=== PATIENT | male | born 1960 | race Caucasian/White ===

== ENCOUNTER 2021-08-01 16:43 | Emergency (ER) | payer MEDICAID ==
--- NOTE | 2021-08-01 16:46 | ERPHSYRPT ---
- History of Present Illness Time Seen by Provider: 08/01/21 16:46 Source: patient Exam Limitations: no limitations Physician History: This is a 61-year-old white male who was seen by nurse practitioner Buffy today for the first time. He has not seen a doctor in 18 years. He is a mechanic welder truck driver and he was seeing her because of bilateral lower extremity leg pain and swelling. He is not on any medications chronically has no known drug allergies. Several labs were obtained earlier today which showed a normal GFR, slightly low potassium of 3.1 and a D-dimer of 1060. Patient was sent here for further evaluation. Patient has a cough. He denies chest pain. He does not have any shortness of breath. He has no abdominal pain. He has no nausea vomiting or diarrhea. Timing/Duration: today Severity: moderate Associated Symptoms: cough, No vomiting, No abdominal pain, No shortness of breath, No chest pain Allergies/Adverse Reactions: No Known Drug Allergies Allergy (Verified 08/01/21 17:04) Home Medications: No Reportable Medications [No Reported Medications] 08/01/21 [History] Travel Risk - International Travel Have you traveled outside of the country in past 3 weeks: No - Coronavirus Screening Are you exhibiting any of the following symptoms?: Yes Symptoms: Cough: New Onset Close contact with a COVID-19 positive Pt in past 14-21 Days: No - Review of Systems Constitutional: No Symptoms Eyes: No Symptoms Ears, Nose, & Throat: No Symptoms Respiratory: Cough Cardiac: No Symptoms Abdominal/Gastrointestinal: No Symptoms Genitourinary Symptoms: No Symptoms Musculoskeletal: Other Skin: No Symptoms (Swelling bilateral lower extremities) Neurological: No Symptoms Psychological: No Symptoms Endocrine: No Symptoms Hematologic/Lymphatic: No Symptoms Immunological/Allergic: No Symptoms All Other Systems: Reviewed and Negative - Past Medical History Pertinent Past Medical History: No - Past Surgical History Past Surgical History: No - Nursing Vital Signs Nursing Vital Signs: Initial Vital Signs Temperature 98.4 F 08/01/21 16:54 Pulse Rate 120 H 08/01/21 16:54 Respiratory Rate 20 08/01/21 16:54 Blood Pressure 136/91 08/01/21 16:54 O2 Sat by Pulse Oximetry 99 08/01/21 16:54 Pain Scale Pain Intensity 4 - Physical Exam General Appearance: no apparent distress, alert, anxiety Eye Exam: PERRL/EOMI, eyes nml inspection Ears, Nose, Throat Exam: normal ENT inspection, moist mucous membranes Neck Exam: normal inspection, non-tender, supple, full range of motion Respiratory Exam: normal breath sounds, lungs clear, airway intact, No chest tenderness, No respiratory distress Cardiovascular Exam: tachycardia Gastrointestinal/Abdomen Exam: soft, normal bowel sounds, No tenderness Rectal Exam: not done Back Exam: normal inspection, normal range of motion, No CVA tenderness, No vertebral tenderness Extremity Exam: normal range of motion, pelvis stable, pedal edema (Bilateral), tenderness (Bilateral lower extremity) Neurologic Exam: alert, oriented x 3, cooperative, 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, normal mood/affect, nml cerebellar function, nml station & gait, sensation nml Skin Exam: normal color, warm, dry Lymphatic Exam: No adenopathy SpO2 Interpretation: normal O2 Delivery: Room Air - Course Nursing assessment & vital signs reviewed: Yes Ordered Tests: Active Orders 24 hr Category Date Time Status CHEST WITH CONTRAST [CT] Stat Exams 08/01/21 17:22 Taken VENOUS BILATERAL EXTREMITY [US] Stat Exams 08/01/21 17:20 Taken Medication Summary Discontinued Medications Generic Name Dose Route Start Last Admin Trade Name Freq PRN Reason Stop Dose Admin Sodium Chloride 500 mls @ 500 mls/hr 08/01/21 17:22 08/01/21 19:11 Sodium Chloride 0.9% 500 Ml IV 08/01/21 18:21 Infused .Q1H ONE Infusion Sodium Chloride Confirm 08/01/21 17:25 Sodium Chloride 0.9% 500 Ml Administered 08/01/21 17:26 Dose 500 mls @ ud IV .STK-MED ONE Potassium Chloride 20 meq 08/01/21 17:21 08/01/21 17:26 Potassium Chloride 10 Meq Tablet PO 08/01/21 17:22 20 meq STAT ONE Administration Potassium Chloride Confirm 08/01/21 17:25 Potassium Chloride 10 Meq Tablet Administered 08/01/21 17:26 Dose 20 meq PO .STK-MED ONE - Progress Progress: improved, pain not gone completely, re-examined Progress Note: 08/01/21 19:03 Bilateral lower extremity ultrasound is negative for DVT. 08/01/21 19:39 CTA of the chest shows no obvious pulmonary emboli. There is mild bibasilar dependent atelectasis right greater than left with a small nonspecific right effusion. Counseled pt/family regarding: diagnosis, need for follow-up, rad results - Departure Departure Disposition: Home Clinical Impression: Abnormal laboratory test result, Swelling of both lower extremities Condition: Stable Critical Care Time: No Referrals: BRO SAPP NP [Primary Care Provider] - Follow up/PCP as directed Additional Instructions: Follow-up with your nurse practitioner's office tomorrow to make arrangements for a follow-up appointment.
[2021-08-01] MEDS ORDERED: Klor Con 10 MEQ PO ONE ×2 (17:21→17:25)
[2021-08-01] MEDS ORDERED: Sodium Chloride 0.9% 500 ML 500 ML IV ONE ×2 (17:22→17:25)
[2021-08-01 17:47] VITALS: O2SAT 100
[2021-08-01 19:58] VITALS: BP 113/81; PULSE 100
--- NOTE | 2021-08-02 08:49 | XRAY ---
Indication: Bilateral edema. Elevated d-dimer. Two-dimensional sonogram and color Doppler imaging of the major venous vessels of the left and right leg performed. Comparison: None No thrombus seen in the examined deep venous vessels of the left and right leg including greater saphenous vein. Veins demonstrate normal compressibility. Venous waveforms are normal with and without augmentation. Impression: Left and right legs negative for DVT. Comment: Preliminary report was given.
--- NOTE | 2021-08-02 08:55 | XRAY ---
Indication: Cough. Elevated d-dimer. Bilateral lower extremity pain and swelling. Positive Covid 19 one month ago. Multiple contiguous axial images obtained through the chest using 80 cc Isovue 370 contrast and pulmonary embolus. Comparison: None There is good opacification of the pulmonary arteries. However mild respiration artifact especially near the lung bases limits evaluation of the more distal lobar and segmental branches. No obvious pulmonary embolus. Heart not enlarged. Aorta is normal in course and caliber. 1.1 x 1.4 cm right hilar node. No pathologic mediastinal lymphadenopathy. Lungs demonstrates mild left and moderate right dependent atelectasis greatest near the lung bases. Also small nonspecific right effusion. Incidental right lower lobe calcified granulomas and minimal biapical subpleural cystic changes. No suspicious pulmonary mass or infiltrate. Bony thorax intact with mild degenerative changes throughout the spine. Limited upper abdomen demonstrates fatty liver with small perihepatic fluid and splenic calcified granulomas. Impression: 1. Pulmonary embolus evaluation limited by respiration artifact. No obvious pulmonary embolus. 2. Bilateral dependent atelectasis with small nonspecific right effusion. 3. Incidental biapical subpleural cystic changes, fatty liver with perihepatic fluid, and old granulomatous disease.
== END 2021-08-01 19:53 | disposition home or self-care (01) ==
LOC: ED 16:43
DX: R79.1 Abnormal coagulation profile (principal); R60.0 Localized edema; R05.9 Cough, unspecified
CPT/HCPCS: 71260; 93970; 99284; A9270-GY

== ENCOUNTER 2024-11-26 09:21 | Day surgery (SDC) | payer MEDICARE ==
--- NOTE | 2024-11-24 10:33 | HP ---
HISTORY AND PHYSICAL HISTORY OF PRESENT ILLNESS: The patient is a 64-year-old male who presents with a atypical lesion on his left cheek. It has been there for a while. He would like it removed. It is about 1.5 cm. PAST MEDICAL HISTORY: Anxiety, depression, fibromyalgia. HOME MEDICATIONS: Multivitamins, Cymbalta, omega-3. ALLERGIES: None. PAST SURGICAL HISTORY: Tonsillectomy. SOCIAL HISTORY: Current smoker. FAMILY HISTORY: None. REVIEW OF SYSTEMS: CONSTITUTIONAL: Denies fever or chills. CHEST: Denies shortness of breath. CARDIOVASCULAR: Denies chest pain. ABDOMEN: Denies abdominal pain. PHYSICAL EXAMINATION: GENERAL: No acute distress. CARDIOVASCULAR: Regular rate and rhythm. RESPIRATORY: Nonlabored. No shortness of breath. ABDOMEN: Soft. SKIN: He has a left cheek lesion that is lobulated, about 1.5 cm. ASSESSMENT: Atypical lesion of the left cheek. PLAN: Excision of left cheek lesion with Dr. Messi Navarro. This report was dictated for Dr. Navarro by Nu Medina NP.
[~2024-11-26 09:21] MED LIST: XYLOCAINE 1% HCL 20 ML MDV ONE
[2024-11-26] MEDS: Lactated Ringers 1,000 ML IV SCH (09:26)
[2024-11-26 09:54] VITALS: O2SAT 100
[2024-11-26] MEDS: CEFAZOLIN 2 GM/100 ML NaCl 2 GM/100 ML IVPB IV SCH (09:59)
[2024-11-26] MEDS ORDERED: Triple Antibiotic Ointment ONE (12:51)
[2024-11-26 13:13] VITALS: BP 157/85; PULSE 75; RESP 16; TEMP 97.9
--- NOTE | 2024-11-27 12:22 | OP ---
SURGERY DATE/TIME: 11/26/2024 [id number] PREOPERATIVE DIAGNOSIS: A 2 cm irregular skin lesion, left cheek-left periorbital area. POSTOPERATIVE DIAGNOSIS: A 2 cm irregular skin lesion, left cheek-left periorbital area. PROCEDURE: Excision and closure. SURGEON: Messi Navarro MD ANESTHESIA: Local. COMPLICATIONS: None. CONDITION: Stable. DESCRIPTION OF PROCEDURE AND FINDINGS: Patient was taken to surgery. Routine prep and drape. It was marked closely. I think it is benign, but it is growing. It is right by the eye, and it is irregular. It had closed margins. A 1% lidocaine. That is about 2 cm. It was necessary to mobilize the skin. The skin was loose around here. It was mobilized. It was approximated with simple interrupted suture of 4-0 chromic from the critical area near the eye laterally. As we approached laterally, there was a small dog ear that was trimmed off and closed. Sterile ointment applied. Patient tolerated the procedure satisfactorily.
== END 2024-11-26 13:25 | disposition home or self-care (01) ==
LOC: SDC 09:21
PROVIDERS: ATTEND Surgery
DX: L91.8 Other hypertrophic disorders of the skin (principal); L98.9 Disorder of the skin and subcutaneous tissue, unspecified
CPT/HCPCS: J0690; A9270-GY